=== PATIENT | male | born 1980 | race Caucasian/White ===

== ENCOUNTER 2016-04-18 09:11 | Emergency (ER) | payer OTHER ==
[2016-04-18 09:23] VITALS: TEMP 98.3; BMI 33.3
[2016-04-18] MEDS ORDERED: OXYCODONE/APAP 5/325MG COMBO TABLET PO ONE (09:43)
[2016-04-18] MEDS ORDERED: diazePAM 5 MG TABLET PO ONE (09:43)
--- NOTE | 2016-04-18 09:43 | PDOC ---
History of Present Illness - General Chief Complaint: Back Pain Stated Complaint: Head/Neck problem Time Seen by Provider: 04/18/16 09:17 History Source: Patient Exam Limitations: No Limitations - History of Present Illness Initial Comments: CHIEF COMPLAINT: 35 y/o afebrile male with no significant PMH c/o right sided neck pain for the past 1 week. 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 He states since that day his right shoulder has become more and more sore. He states the pain starts in the right side of his neck and radiates down his entire right arm. He has been taking Naproxen and Robaxin for his symptoms with little relief. He denies trauma to head/neck, f/c, n/v/d, CP, SOB, abd pain, back pain. Vital signs on arrival are notable for pulse of 56 and O2 sat of 93% on RA. REVIEW OF SYSTEMS: GENERAL/CONSTITUTIONAL: No fever/chills. No weakness. No weight change. HEAD, EYES, EARS, NOSE AND THROAT: No change in vision. No ear pain or discharge. No sore throat. CARDIOVASCULAR: No chest pain or shortness of breath. RESPIRATORY: No cough, wheezing, or hemoptysis. GASTROINTESTINAL: No abd pain, nausea, vomiting, diarrhea. GENITOURINARY: No dysuria, frequency, or change in urination. MUSCULOSKELETAL: +right shoulder and neck pain. SKIN: No rash or easy bruising. NEUROLOGIC: No headache, vertigo, loss of consciousness, or loss of sensation. PHYSICAL EXAM: GENERAL: The patient is awake, alert, and fully oriented, in obvious discomfort , holding his head in a fixed position looking forward. HEAD: Normal with no signs of trauma. NECK: No midline cervical spine TTP. Pain with lateral neck movements, worse when turning head towards left shoulder. TTP of right SCM and trapezius muscles with muscle spasm. EYES: Pupils equal, round and reactive to light, extraocular movements intact, sclera anicteric, conjunctiva clear. EXTREMITIES: Normal range of motion, no edema. No TTP of right AC joint. NEUROLOGICAL: Normal speech, normal gait. PSYCH: Normal mood, normal affect. SKIN: Warm, Dry, normal turgor, no rashes or lesions noted. Past History - Past Medical History Allergies/Adverse Reactions: Allergies Allergy/AdvReac Type Severity Reaction Status Date / Time No Known Allergies Allergy Verified 03/25/16 12:53 Home Medications: Ambulatory Orders Diazepam [Valium] 10 mg PO BID #12 tablet MDD 4 04/18/16 Methocarbamol [Robaxin -] 750 mg PO PRN 04/18/16 Naproxen [Naprosyn -] 500 mg PO PRN 04/18/16 Oxycodone HCl/Acetaminophen [Percocet 5-325 mg Tablet] 1 tab PO PRN 04/18/16 Other medical history: denies - Immunization History Immunization Up to Date: Yes - Psycho/Social/Smoking Cessation Hx Anxiety: No Suicidal Ideation: No Smoking History: Never smoked Have you smoked in the past 12 months: No Information on smoking cessation initiated: No Hx Alcohol Use: No Drug/Substance Use Hx: No Substance Use Type: None *Physical Exam - Vital Signs Last Vital Signs Temp Pulse Resp BP Pulse Ox 98.3 F 56 L 20 113/69 93 L 04/18/16 09:16 04/18/16 09:16 04/18/16 09:16 04/18/16 09:16 04/18/16 09:16 Medical Decision Making - Medical Decision Making A/P: 35 y/o afebrile male with muscle strain and muscle spasm. Pt has failed outpatient Naproxen/robaxin treatment. Plan is as follows: 1. PO valium 2. PO percocet The patient is very concerned that he has a slipped disc in his neck. I assured him that because of his physical exam findings I do not believe he has a slipped disc. He states he would feel better if he had a CT scan. CT scan cervical spine IMPRESSION: No evidence of acute fracture, compression deformities, subluxation , prevertebral soft tissue swelling. The patient was given his results. He has an Orthopedic appointment scheduled for this afternoon which I suggested he keep. Suggested he take valium instead of robaxin and will d/c to home with rx for valium. Pt informed valium may cause drowsiness. Suggested he use heating pad to his affected shoulder and stretch his neck multiple times per day. Suggested he ask his orthopedic doctor about possible physical therapy. Suggested a sling but he states he had one and it wasn't helping. Instructed him to return to the ER with any worsening or concerning symptoms. The patient verbalizes understanding of all instructions, has no further questions and is awaiting discharge. *DC/Admit/Observation/Transfer Diagnosis at time of Disposition: Cervical radiculopathy, Neck pain - Discharge Dispostion Disposition: HOME Condition at time of disposition: Improved - Patient Instructions Printed Discharge Instructions: DI for Cervical Radiculopathy, DI for Cervical Muscle Strain, DI for Torticollis Additional Instructions: Discharge Instructions: -Take valium as prescribed (DO NOT TAKE METHOCARBAMOL WHILE TAKING VALIUM) -Continue taking Naproxen -Use heating pad to affected area -Stretch your neck muscles multiple times per day -Keep your follow up appointment with orthopedic doctor scheduled for today -Return to the ER with any worsening or concerning symptoms
[2016-04-18] MEDS ORDERED: OXYCODONE/APAP 5/325MG COMBO TABLET ONE (09:49)
[2016-04-18] MEDS ORDERED: diazePAM 5 MG TABLET ONE (09:49)
[2016-04-18 13:14] VITALS: BP 118/72; PULSE 70
== END 2016-04-18 13:15 | disposition home or self-care (01) ==
LOC: JER 09:11
DX: M54.12 Radiculopathy, cervical region (principal); M54.2 Cervicalgia
CPT/HCPCS: 72125-TC; 99283-25

== ENCOUNTER 2017-10-19 15:31 | Emergency (ER) | payer OTHER ==
[2017-10-19 15:46] VITALS: BP 120/78; PULSE 96; TEMP 98.4; BMI 32.3
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
[2017-10-19] MEDS ORDERED: IBUPROFEN 600 MG TABLET (FP) PO ONE ×2 (16:12→16:24)
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
== END 2017-10-19 16:33 | disposition home or self-care (01) ==
LOC: JERFT 15:31
DX: S46.811A Strain of other muscles, fascia and tendons at shoulder and upper arm level, right arm, initial encounter (principal); M79.641 Pain in right hand; M79.642 Pain in left hand; Z77.21 Contact with and (suspected) exposure to potentially hazardous body fluids; M54.2 Cervicalgia; Y35.811A Legal intervention involving manhandling, law enforcement official injured, initial encounter; Y93.89 Activity, other specified; Y92.89 Other specified places as the place of occurrence of the external cause; Y99.0 Civilian activity done for income or pay
CPT/HCPCS: 99281-25

== ENCOUNTER 2018-05-01 14:39 | Emergency (ER) | payer OTHER ==
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
[2018-05-01 14:52] VITALS: BP 115/72; PULSE 69; TEMP 98.7; BMI 32.3
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
== END 2018-05-01 15:59 | disposition home or self-care (01) ==
LOC: JERFT 14:39
DX: S63.502A Unspecified sprain of left wrist, initial encounter (principal); S46.811A Strain of other muscles, fascia and tendons at shoulder and upper arm level, right arm, initial encounter; S43.401A Unspecified sprain of right shoulder joint, initial encounter; Y35.811A Legal intervention involving manhandling, law enforcement official injured, initial encounter; Y93.89 Activity, other specified; Y92.89 Other specified places as the place of occurrence of the external cause; Y99.0 Civilian activity done for income or pay
CPT/HCPCS: 73030-TC-RT-FY; 73110-TC-RT-FY; 99281-25

== ENCOUNTER 2020-09-09 13:29 | Emergency (ER) | payer OTHER ==
[2020-09-09 13:45] VITALS: BP 130/81; PULSE 72; TEMP 98.8; BMI 31.4
== END 2020-09-09 15:45 | disposition home or self-care (01) ==
LOC: FER 13:29
DX: S99.912A Unspecified injury of left ankle, initial encounter (principal); S50.311A Abrasion of right elbow, initial encounter
CPT/HCPCS: 73610-TC-LT-FY; 73630-TC-LT; 99284-25

== ENCOUNTER 2021-09-26 00:58 | Emergency (ER) | payer OTHER ==
[2021-09-26] MEDS ORDERED: DIPHTH,PERTUSS(ACELL),TET 0.5 ML DISP.SYRIN IM ONE ×2 (01:04→01:06)
[2021-09-26 01:05] VITALS: BP 119/68; PULSE 64; TEMP 99; BMI 31.4
[2021-09-26] MEDS ORDERED: CEPHALEXIN MONOHYDRATE 500 MG CAPSULE (UD) ONE (01:10)
[2021-09-26] MEDS ORDERED: CEPHALEXIN MONOHYDRATE 500 MG CAPSULE (UD) PO ONE (01:11)
== END 2021-09-26 01:13 | disposition home or self-care (01) ==
LOC: FER 00:58
PROC: 3E0234Z Introduction of Serum, Toxoid and Vaccine into Muscle, Percutaneous Approach (ICD-10-PCS; principal; 2021-09-26)
DX: S60.311A Abrasion of right thumb, initial encounter (principal); Y35.891A Legal intervention involving other specified means, law enforcement official injured, initial encounter
CPT/HCPCS: 90715; 99284-25

== ENCOUNTER 2022-01-09 01:58 | Emergency (ER) | payer OTHER ==
[2022-01-09 02:07] VITALS: BP 115/75; PULSE 78; RESP 16; TEMP 98.9; BMI 31.3
== END 2022-01-09 02:30 | disposition home or self-care (01) ==
LOC: FER 01:58
DX: Z77.21 Contact with and (suspected) exposure to potentially hazardous body fluids (principal)
CPT/HCPCS: 99283-25

== ENCOUNTER 2022-06-01 12:14 | Emergency (ER) | payer OTHER ==
[2022-06-01 12:26] VITALS: BP 98/71; PULSE 72; RESP 18; TEMP 98.4; BMI 31.4
== END 2022-06-01 13:03 | disposition home or self-care (01) ==
LOC: FER 12:14
DX: S80.811A Abrasion, right lower leg, initial encounter (principal); W55.03XA Scratched by cat, initial encounter
CPT/HCPCS: 99281-25

== ENCOUNTER 2022-11-25 12:05 | Emergency (ER) | payer OTHER ==
[2022-11-25 12:12] VITALS: BP 116/75; PULSE 63; RESP 18; TEMP 97.8; BMI 32.3
[2022-11-25] MEDS ORDERED: IBUPROFEN 600 MG TABLET (FP) PO ONE ×2 (12:39→12:44)
== END 2022-11-25 14:20 | disposition home or self-care (01) ==
LOC: FER 12:05
DX: S49.91XA Unspecified injury of right shoulder and upper arm, initial encounter (principal); M25.511 Pain in right shoulder; M79.642 Pain in left hand; R22.31 Localized swelling, mass and lump, right upper limb; M54.2 Cervicalgia; W22.8XXA Striking against or struck by other objects, initial encounter; Y99.0 Civilian activity done for income or pay; Z87.81 Personal history of (healed) traumatic fracture
CPT/HCPCS: 73110-TC-LT-FY; 73130-TC-LT-FY; 99283-25